=== PATIENT | male | born 1985 | race Caucasian/White ===

== ENCOUNTER 2017-05-27 18:36 | Emergency (ER) | payer MEDICAID ==
--- NOTE | 2017-05-27 18:55 | EDPHY ---
H & P Stated Complaint: off his meds - Personal History Current Tetanus Diphtheria and Acellular Pertussis (TDAP): Yes - Medical/Surgical History Hx Asthma: No Hx Chronic Respiratory Disease: No Hx Diabetes: No Hx Cardiac Disease: No Hx Renal Disease: No Hx Cirrhosis: No Hx Alcoholism: No Hx HIV/AIDS: No Hx Splenectomy or Spleen Trauma: No Other PMH: Anxiety, Bipolar, HTN, Schizo-affective disorder, frontal lobe dysfunction - Social History Smoking Status: Current every day smoker Time Seen by Provider: 05/27/17 18:47 HPI/ROS: CHIEF COMPLAINT: M1 hold HISTORY OF PRESENT ILLNESS: 32-year-old male history of schizoaffective disorder arrives on M1 hold for complaints of disorganized behavior and thoughts , noncompliant with medication. Patient states that he has been taking "Tomy's meds". He denies suicidal or homicidal ideation. He denies self-injurious behavior. REVIEW OF SYSTEMS: A ten point review of systems was performed and is negative with the exception of the items mentioned in the HPI PAST MEDICAL & SURGICAL HISTORY: Schizoaffective disorder SOCIAL HISTORY: Nonsmoker PHYSICAL EXAM (Prior to examination, patient consented to physical exam, hands were washed and my usual and customary physical exam procedures followed) 1) GENERAL: foul-smelling, alert and oriented. Appears to be in no acute distress. 2) HEAD: Normocephalic, atraumatic 3) HEENT: Pupils equal, round, reactive to light bilaterally. Sclera anicteric. 4) NECK: Full range of motion, no meningeal signs. 5) LUNGS: Clear auscultation bilaterally, no wheezes, no rhonchi, no retractions. 6) HEART: Regular rate and rhythm, no murmur, no heave, no gallop. 7) ABDOMEN: No guarding, no rebound, no focal tenderness,, 8) MUSCULOSKELETAL: Moving all extremities, no focal areas of tenderness, no obvious trauma. No peripheral edema or discoloration. 9) BACK: No CVA tenderness, no midline vertebral tenderness, no fluctuance, no step-off, no obvious trauma, no visual or palpable abnormality. 10) SKIN: No rash, no petechiae. 11) Psychiatric: Patient is oriented X 3, intermittently agitated. Flight of ideas. Rapid tangential speech. DIFFERENTIAL DIAGNOSIS: In no particular include but limited to psychosis, mei, medication compliant (Elizabeth Casarez) Constitutional: Initial Vital Signs Temperature (C) 37.0 C 05/27/17 18:47 Heart Rate 99 05/27/17 18:47 Respiratory Rate 18 05/27/17 18:47 Blood Pressure 148/99 H 05/27/17 18:47 O2 Sat (%) 98 05/27/17 18:47 O2 Delivery Mode Room Air Allergies/Adverse Reactions: No Known Allergies Allergy (Verified 03/10/13 10:57) Home Medications: Medication Instructions Recorded Gabapentin 400 mg TID 05/28/17 INVEGA 6 mg 05/28/17 Inderal 20mg (*) BID 05/28/17 Olanzapine 15 mg 05/28/17 QUEtiapine FUMARATE [Seroquel 200 05/28/17 mg (*)] Medical Decision Making ED Course/Re-evaluation: 6:50 p.m.: Patient is on an M1 hold. He is currently exhibiting disorganized thoughts, he is not taking the medication. Plan will be diagnostic studies and mental health evaluation. Care of patient under supervision of secondary supervising physician Dr Villavicencio . Midnight: Patient has been re-evaluated with serial examinations during his emergency department stay. He was given oral Ativan earlier his emergency department stay as he is becoming increasingly agitated. At this time care turned over to Dr Sepulveda. Mental health evaluation pending. (Elizabeth Casarez) 0700: Signed over to Dr. Isabel, patient been sleeping this evening. He did have a mental health evaluation and they would like to admit him for inpatient psychiatric care. Plan for bed search at this time. (uSnny Sepulveda) - Data Points Laboratory Results: Laboratory Results 05/27/17 19:15 05/27/17 19:15 05/27/17 05/27/17 05/27/17 19:15 19:15 18:40 WBC 8.78 10^3/uL 10^3/uL (3.80-9.50) RBC 5.67 10^6/uL 10^6/uL (4.40-6.38) Hgb 15.1 g/dL g/dL (13.7-17.5) Hct 46.4 % % (40.0-51.0) MCV 81.8 fL fL (81.5-99.8) MCH 26.6 pg L pg (27.9-34.1) MCHC 32.5 g/dL g/dL (32.4-36.7) RDW 12.6 % % (11.5-15.2) Plt Count 234 10^3/uL 10^3/uL (150-400) MPV 9.8 fL fL (8.7-11.7) Neut % (Auto) 68.6 % % (39.3-74.2) Lymph % (Auto) 22.7 % % (15.0-45.0) Bureau % (Auto) 6.6 % % (4.5-13.0) Eos % (Auto) 1.1 % % (0.6-7.6) Baso % (Auto) 0.7 % % (0.3-1.7) Nucleat RBC Rel Count 0.0 % % (0.0-0.2) Absolute Neuts (auto) 6.02 10^3/uL 10^3/uL (1.70-6.50) Absolute Lymphs (auto) 1.99 10^3/uL 10^3/uL (1.00-3.00) Absolute Monos (auto) 0.58 10^3/uL 10^3/uL (0.30-0.80) Absolute Eos (auto) 0.10 10^3/uL 10^3/uL (0.03-0.40) Absolute Basos (auto) 0.06 10^3/uL 10^3/uL (0.02-0.10) Absolute Nucleated RBC 0.00 10^3/uL 10^3/uL (0-0.01) Immature Gran % 0.3 % % (0.0-1.1) Immature Gran # 0.03 10^3/uL 10^3/uL (0.00-0.10) Sodium 139 mEq/L mEq/L (135-145) Potassium 3.6 mEq/L mEq/L (3.5-5.2) Chloride 102 mEq/L mEq/L (97-110) Carbon Dioxide 28 mEq/l mEq/l (22-31) Anion Gap 9 mEq/L mEq/L (8-16) BUN 4 mg/dL L mg/dL (7-23) Creatinine 0.7 mg/dL mg/dL (0.7-1.3) Estimated GFR > 60 Glucose 77 mg/dL mg/dL (70-100) Calcium 9.0 mg/dL mg/dL (8.5-10.4) Urine Opiates Screen NEGATIVE (NEGATIVE) Urine Barbiturates NEGATIVE (NEGATIVE) Ur Phencyclidine Scrn NEGATIVE (NEGATIVE) Ur Amphetamine Screen NEGATIVE (NEGATIVE) U Benzodiazepines Scrn NEGATIVE (NEGATIVE) Urine Cocaine Screen NEGATIVE (NEGATIVE) U Marijuana (THC) Screen NEGATIVE (NEGATIVE) Ethyl Alcohol < 10 mg/dL mg/dL (0-10) Medications Given: Gabapentin (Neurontin) 400 mg PO DAILY SHERRI Stop: 11/24/17 08:59 Last Admin: 05/28/17 00:37 Dose: 400 mg Olanzapine (Olanzapine) 15 mg PO HS SHERRI Stop: 11/24/17 20:59 Last Admin: 05/28/17 00:36 Dose: 15 mg Paliperidone (Invega) 6 mg PO DAILY SHERRI Stop: 11/24/17 08:59 Last Admin: 05/28/17 00:45 Dose: 6 mg Propranolol HCl (Inderal) 20 mg PO BID SHERRI Stop: 11/24/17 00:29 Last Admin: 05/28/17 00:36 Dose: 20 mg Discontinued Medications Lorazepam (Ativan) 2 mg PO EDNOW ONE Stop: 05/27/17 19:45 Last Admin: 05/28/17 00:29 Dose: Not Given Quetiapine Fumarate (Seroquel) 200 mg PO EDNOW ONE Stop: 05/28/17 00:27 Last Admin: 05/28/17 00:36 Dose: 200 mg Departure - Departure Disposition: Other Psych, Not [facility] Clinical Impression: Noncompliance with medication regimen Schizoaffective disorder Qualifiers: Schizoaffective disorder type: unspecified Qualified Code(s): F25.9 - Schizoaffective disorder, unspecified Condition: Fair Referrals: Patient,NotPresent [Unknown] - As per Instructions
[2017-05-27 19:27] LABS: PLATELET COUNT 234 10^3/uL (150-400)
[2017-05-27] MEDS: LORazepam 1 MG TAB PO ONE (19:48)
[2017-05-28] MEDS ORDERED: QUEtiapine FUMARATE 200 MG TAB PO ONE (00:26)
[2017-05-28] MEDS: LORazepam 1 MG TAB PO ONE (00:29)
[2017-05-28] MEDS ORDERED: OLANZapine 5 MG TAB ONE (00:32)
[2017-05-28] MEDS ORDERED: GABAPENTIN 300 MG CAP ONE (00:32)
[2017-05-28] MEDS ORDERED: GABAPENTIN 100 MG CAP ONE (00:33)
[2017-05-28] MEDS: PROPRANOLOL HCL 20 MG TAB PO SCH ×2 (00:36→10:17)
[2017-05-28] MEDS: GABAPENTIN 400 MG CAP PO SCH ×2 (00:37→11:26)
[2017-05-28] MEDS ORDERED: PALIPERIDONE 3 MG TAB.ER PO SCH (09:00)
[2017-05-28 13:29] VITALS: BP 128/79
[2017-05-28] MEDS ORDERED: OLANZapine 5 MG TAB PO SCH (21:00)
== END 2017-05-28 13:29 ==
DX: F25.9 Schizoaffective disorder, unspecified (principal); F17.200 Nicotine dependence, unspecified, uncomplicated; I10 Essential (primary) hypertension; Z91.14 Patient's other noncompliance with medication regimen
CPT/HCPCS: 80305; G0480

== ENCOUNTER 2018-03-03 07:15 | Emergency (ER) | payer OTHER, MEDICAID ==
[2018-03-03 07:21] VITALS: BP 152/96
--- NOTE | 2018-03-03 07:21 | EDPHY ---
H & P Time Seen by Provider: 03/03/18 07:20 HPI/ROS: CHIEF COMPLAINT: Right thigh pain HISTORY OF PRESENT ILLNESS: 33-year-old male presents with right thigh pain. Onset of atraumatic right thigh pain yesterday. The pain is moderate and increases with ambulation. He called 911 for transport to the hospital, stating that he could not walk. However, he walked to the ambulance and then into the emergency department without a limp. He is recently homeless and slept outside last night. REVIEW OF SYSTEMS: complete 10 point ROS reviewed and is negative except for the noted elements in the HPI - Medical/Surgical History Hx Asthma: No Hx Chronic Respiratory Disease: No Hx Diabetes: No Hx Cardiac Disease: No Hx Renal Disease: No Hx Cirrhosis: No Hx Alcoholism: No Hx HIV/AIDS: No Hx Splenectomy or Spleen Trauma: No Other PMH: Anxiety, Bipolar, HTN, Schizo-affective disorder, frontal lobe dysfunction - Social History Smoking Status: Current every day smoker Alcohol Use: Sober Drug Use: None - Physical Exam Exam: General Appearance: Alert, pleasant and cooperative Eyes: Pupils equal and round ENT, Mouth: Mucous membranes moist Neck: Normal inspection Respiratory: Lungs are clear to auscultation Cardiovascular: Regular rate and rhythm Gastrointestinal: Abdomen is soft and nontender Neurological: A&O, motor 5/5, normal gait Skin: Warm and dry Extremities: Right thigh-normal inspection, mildly tender over the upper anterior quadriceps musculature, range of motion at hip and knee without pain Psychiatric: Mood and affect normal Constitutional: Initial Vital Signs Temperature (C) 37.2 C 03/03/18 07:17 Heart Rate 99 03/03/18 07:17 Respiratory Rate 18 03/03/18 07:17 Blood Pressure 152/96 H 03/03/18 07:17 O2 Sat (%) 96 03/03/18 07:17 O2 Delivery Mode Room Air Allergies/Adverse Reactions: No Known Allergies Allergy (Verified 03/10/13 10:57) Home Medications: Medication Instructions Recorded NK [No Known Home Meds] 03/03/18 Medical Decision Making ED Course/Re-evaluation: This patient presents with right thigh pain. He ambulates with a steady gait and does not appear in pain. Tylenol 650 mg orally given. There is no evidence infection and no indication for imaging. Safe and stable for discharge home. - Data Points Medications Given: Discontinued Medications Acetaminophen (Tylenol) 650 mg PO EDNOW ONE Stop: 03/03/18 07:55 Last Admin: 03/03/18 07:58 Dose: 650 mg Departure - Departure Disposition: Home, Routine, Self-Care Clinical Impression: Muscle strain of thigh Qualifiers: Encounter type: initial encounter Laterality: right Qualified Code(s): S76.911A - Strain of unspecified muscles, fascia and tendons at thigh level, right thigh, initial encounter Condition: Good Instructions: Muscle Strain (ED) Additional Instructions: Tylenol 650 mg every 4 hr as needed for pain. [facility] has walk-in appointments for the homeless at the following days/locations. No appointment is needed. Saturday 8-10 am @ [facility] 11 AM-1 PM @ [facility] Saturday 8-10:30 AM @ [facility] Saturday 8-10 AM @ [facility] 2-4 PM @ [facility] Saturday 8-10 AM @ [facility] Referrals: Cheli Garza MD [Medical Doctor] - As per Instructions
[2018-03-03] MEDS ORDERED: ACETAMINOPHEN 325 MG TAB ONE (07:53)
[2018-03-03] MEDS ORDERED: ACETAMINOPHEN 325 MG TAB PO ONE (07:54)
== END 2018-03-03 08:28 | disposition home or self-care (01) ==
LOC: EDUNIT#
DX: S76.911A Strain of unspecified muscles, fascia and tendons at thigh level, right thigh, initial encounter (principal)

== ENCOUNTER 2018-04-12 20:30 | Emergency (ER) | payer OTHER, MEDICAID ==
[2018-04-12] MEDS ORDERED: NS 1,000 ML IV ONE (20:36)
--- NOTE | 2018-04-12 20:38 | EDPHY ---
H & P Time Seen by Provider: 04/12/18 22:30 HPI/ROS: HPI CHIEF COMPLAINT: Shortness of breath and cough. HISTORY OF PRESENT ILLNESS: This is a 33-year-old male, history of schizoaffective disorder, bipolar disorder, hypertension, frontal lobe dysfunction, presents emergency room by EMS for shortness of breath. Patient states for weeks he has been short of breath with a cough. States he has a productive cough but swallows the sputum. He can not tell me what color it is. Denies any fever. Denies any chest pain. His main complaint tonight is cough. He reports he has been coughing worse when he walks. Worse when he inhales cold air He arrives to the emergency room in no acute distress he has stable vital signs heart rate is 86, room air saturation 97% on room air, 107/73 blood pressure. He denies any chest pain or pleuritic pain. Past Medical History: Schizoaffective disorder, hypertension, bipolar disorder , frontal lobe dysfunction Past Surgical History: Denies recent surgery Social History: denies current use of drugs alcohol tobacco. Family History: Noncontributory ROS REVIEW OF SYSTEMS: 10 Systems were reviewed and negative with the exception of the elements mentioned in the history of present illness. Exam Constitutional appears well nontoxic triage nursing summary reviewed, vital signs reviewed, awake/alert. Stable vital signs at triage, 97% room air sat, heart rate 86. Eyes normal conjunctivae and sclera, EOMI, PERRLA. HENT normal inspection, atraumatic, moist mucus membranes, no epistaxis, neck supple/ no meningismus, no raccoon eyes. Respiratory clear to auscultation bilaterally, normal breath sounds, no respiratory distress, no wheezing. Cardiovascular rate normal, regular rhythm, no murmur, no edema, distal pulses normal. Gastrointestinal soft, non-tender, no rebound, no guarding, normal bowel sounds, no distension, no pulsatile mass. Genitourinary no CVA tenderness. Musculoskeletal no midline vertebral tenderness, full range of motion, no calf swelling, no tenderness of extremities, no meningismus, good pulses, neurovascularly intact. Skin pink, warm, & dry, no rash, skin atraumatic. Neurologic awake, alert and oriented x 3, AAOx3, moves all 4 extremities equally, motor intact, sensory intact, CN II-XII intact, normal cerebellar, normal vision, normal speech. Psychiatric normal mood/affect. Heme/Lymph/Immune no lymphadenopathy. 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 Re-evaluation: Chest x-ray shows airway disease no pneumonia. Patient's troponin noted to be negative. D-dimer negative. EKG interpretation by me on record in [employer] system. Impression time of EKG 2047 this is normal sinus rhythm rate of 79 with no signs of acute ischemia. 2230: Patient re-evaluated this time, patient is resting comfortably no acute distress. He is asking to be discharged. He is asking for a cab ride. The patient's workup has been rather unremarkable The patient has a unremarkable EKG, negative troponin, unremarkable D-dimer, a chest x-ray that shows no pneumonia however airway inflammation Given this will prescribe an albuterol inhaler 2 puffs every 4 hr as needed. I have also discussed return precautions with him he understands return emergency room if he develops any worsening shortness of breath, chest pain or not doing well. The patient's current vitals 105/80, heart rate 77, 96% on room air. Unlabored. Resting comfortably no complaints. Albuterol take-home pack will be provided Return precautions discussed. Source: Patient, EMS - Medical/Surgical History Hx Asthma: No Hx Chronic Respiratory Disease: No Hx Diabetes: No Hx Cardiac Disease: No Hx Renal Disease: No Hx Cirrhosis: No Hx Alcoholism: No Hx HIV/AIDS: No Hx Splenectomy or Spleen Trauma: No Other PMH: Anxiety, Bipolar, HTN, Schizo-affective disorder, frontal lobe dysfunction - Social History Smoking Status: Current every day smoker Constitutional: Initial Vital Signs Temperature (C) 37.0 C 04/12/18 20:35 Heart Rate 93 04/12/18 20:35 Respiratory Rate 18 04/12/18 20:35 Blood Pressure 107/73 04/12/18 20:35 O2 Sat (%) 96 04/12/18 20:35 O2 Delivery Mode Room Air Allergies/Adverse Reactions: No Known Allergies Allergy (Verified 03/10/13 10:57) Home Medications: Medication Instructions Recorded "Shot For Schizoaffective" 04/12/18 Medical Decision Making - Diagnostics Imaging Results: Imaging Impressions Chest X-Ray 04/12/18 20:36 Impression: Findings compatible with airways disease noted with no superimposed pneumonia identified - Data Points Laboratory Results: Laboratory Results 04/12/18 20:30 04/12/18 20:30 04/12/18 04/12/18 04/12/18 20:40 20:40 20:30 WBC RBC Hgb Hct MCV MCH MCHC RDW Plt Count MPV Neut % (Auto) Lymph % (Auto) Eddy % (Auto) Eos % (Auto) Baso % (Auto) Nucleat RBC Rel Count Absolute Neuts (auto) Absolute Lymphs (auto) Absolute Monos (auto) Absolute Eos (auto) Absolute Basos (auto) Absolute Nucleated RBC Immature Gran % Immature Gran # D-Dimer Sodium 138 mEq/L mEq/L (135-145) Potassium 5.1 mEq/L mEq/L (3.5-5.2) Chloride 98 mEq/L mEq/L (97-110) Carbon Dioxide 28 mEq/l mEq/l (22-31) Anion Gap 12 mEq/L mEq/L (6-14) BUN 13 mg/dL mg/dL (7-23) Creatinine 0.8 mg/dL mg/dL (0.7-1.3) Estimated GFR > 60 Glucose 89 mg/dL mg/dL (70-100) Calcium 10.3 mg/dL mg/dL (8.5-10.4) POC Troponin I 0.00 ng/mL ng/mL (0.00-0.08) Urine Opiates Screen NEGATIVE (NEGATIVE) Urine Barbiturates NEGATIVE (NEGATIVE) Ur Phencyclidine Scrn NEGATIVE (NEGATIVE) Ur Amphetamine Screen NEGATIVE (NEGATIVE) U Benzodiazepines Scrn NEGATIVE (NEGATIVE) Urine Cocaine Screen NEGATIVE (NEGATIVE) U Marijuana (THC) Screen NEGATIVE (NEGATIVE) 04/12/18 04/12/18 20:30 20:30 WBC 11.53 10^3/uL H 10^3/uL (3.80-9.50) RBC 5.88 10^6/uL 10^6/uL (4.40-6.38) Hgb 15.5 g/dL g/dL (13.7-17.5) Hct 49.5 % % (40.0-51.0) MCV 84.2 fL fL (81.5-99.8) MCH 26.4 pg L pg (27.9-34.1) MCHC 31.3 g/dL L g/dL (32.4-36.7) RDW 13.6 % % (11.5-15.2) Plt Count 304 10^3/uL 10^3/uL (150-400) MPV 10.5 fL fL (8.7-11.7) Neut % (Auto) 62.2 % % (39.3-74.2) Lymph % (Auto) 28.0 % % (15.0-45.0) Eddy % (Auto) 7.5 % % (4.5-13.0) Eos % (Auto) 1.3 % % (0.6-7.6) Baso % (Auto) 0.8 % % (0.3-1.7) Nucleat RBC Rel Count 0.0 % % (0.0-0.2) Absolute Neuts (auto) 7.17 10^3/uL H 10^3/uL (1.70-6.50) Absolute Lymphs (auto) 3.23 10^3/uL H 10^3/uL (1.00-3.00) Absolute Monos (auto) 0.87 10^3/uL H 10^3/uL (0.30-0.80) Absolute Eos (auto) 0.15 10^3/uL 10^3/uL (0.03-0.40) Absolute Basos (auto) 0.09 10^3/uL 10^3/uL (0.02-0.10) Absolute Nucleated RBC 0.00 10^3/uL 10^3/uL (0-0.01) Immature Gran % 0.2 % % (0.0-1.1) Immature Gran # 0.02 10^3/uL 10^3/uL (0.00-0.10) D-Dimer 0.31 ug/mLFEU ug/mLFEU (0.00-0.50) Sodium Potassium Chloride Carbon Dioxide Anion Gap BUN Creatinine Estimated GFR Glucose Calcium POC Troponin I Urine Opiates Screen Urine Barbiturates Ur Phencyclidine Scrn Ur Amphetamine Screen U Benzodiazepines Scrn Urine Cocaine Screen U Marijuana (THC) Screen Medications Given: Discontinued Medications Sodium Chloride (Ns) 1,000 mls @ 0 mls/hr IV EDNOW ONE; Wide Open PRN Reason: Protocol Stop: 04/12/18 20:37 Last Admin: 04/12/18 20:45 Dose: 1,000 mls Point of Care Test Results: Chemistry 04/12/18 20:40 POC Troponin I 0.00 ng/mL ng/mL (0.00-0.08) Departure - Departure Disposition: Home, Routine, Self-Care Clinical Impression: Bronchitis Condition: Good Instructions: Acute Bronchitis (ED) Additional Instructions: 1. Stay well-hydrated drink lots of fluids. 2. Albuterol inhaler 2 puffs as needed every 4 hr for shortness of breath wheezing and cough. 3. Return to the emergency room if there is worsening symptoms Referrals: Patient,NotPresent [Unknown] - As per Instructions [facility],. [Clinic] - As per Instructions
[2018-04-12 20:44] LABS: PLATELET COUNT 304 10^3/uL (150-400)
[2018-04-12] MEDS ORDERED: ALBUTEROL INH PREPACK MDI TAKEHOME ONE ×2 (23:26)
[2018-04-12 23:33] VITALS: BP 128/76
--- NOTE | 2018-04-13 19:52 | CPEKG ---
Test Reason : OPEN Blood Pressure : / mmHG Vent. Rate : 079 BPM Atrial Rate : 079 BPM P-R Int : 120 ms QRS Dur : 081 ms QT Int : 355 ms P-R-T Axes : 040 073 037 degrees QTc Int : 407 ms Sinus rhythm Confirmed by Sunny Sepulveda ([id number]) on 04/13/2018 7:51:30 PM Referred By: Sunny Sepulveda Confirmed By:Sunny Sepulveda
== END 2018-04-12 23:32 | disposition home or self-care (01) ==
LOC: EDUNIT#
DX: J40 Bronchitis, not specified as acute or chronic (principal); E86.9 Volume depletion, unspecified; F31.9 Bipolar disorder, unspecified; F25.9 Schizoaffective disorder, unspecified; I10 Essential (primary) hypertension
CPT/HCPCS: 80305; 84484-ER